=== PATIENT | male | born 1950 | race Two or more races ===

== ENCOUNTER 2024-12-27 12:36 | Inpatient (IN) | payer OTHER ==
[2024-12-27 12:48] VITALS: BMI 27.1
[2024-12-27 13:25] LABS: ABSOLUTE IMMATURE GRANULOCYTES 0.01 x10^3/uL (0.0-0.031); BASOPHILS # 0.02 x10^3/uL (0.01-0.08); EOSINOPHIL % 0.9 % (0.8-7.0); EOSINOPHILS # 0.06 x10^3/uL (0.04-0.54); MCHC 33.2 g/dl (32.3-36.5); MEAN CELL VOLUME 93.7 fl (79.0-92.2); MEAN PLT VOLUME 9.4 fl (9.4-12.4); MONOCYTE # 0.67 x10^3/uL (0.30-0.82); MONOCYTE % 10.3 % (5.3-12.2); RDW 12.2 % (12.2-16.6)
[2024-12-27 13:46] LABS: INR 1.02 (0.83-1.09); PROTHROMBIN TIME (PATIENT) 11.2 SEC (9.7-13.0)
[2024-12-27 13:47] LABS: GLUCOSE,RANDOM 101 mg/dL (74-106)
[2024-12-27 13:48] LABS: TOT PROT 7.1 g/dl (6.4-8.2)
[2024-12-27 13:49] LABS: ACTIVATED PTT 26.9 SECONDS (25.2-36.5)
[2024-12-27 13:49] LABS: CO2 22 mmol/L (21-32)
[2024-12-27 13:50] LABS: ALK PHOS 57 U/L (40-150)
[2024-12-27] MEDS: SODIUM CHLORIDE 1,000 ML IV SCH (13:51)
[2024-12-27 13:53] LABS: CREATININE 0.74 mg/dL (0.55-1.3); LDL CHOLESTEROL (ONLY SJRH) 80 mg/dL (5-100); SGOT/AST 30 U/L (5-34); SGPT/ALT 71 U/L (0-55)
[2024-12-27 14:15] LABS: HCV DIAGNOSTIC IN-HOUSE W/RFLX NON-REACTIVE (NONREACTIVE); HIV INTERPRETATION NEGATIVE (NEGATIVE)
[2024-12-27 14:56] LABS: URINE APPEARANCE CLOUDY; URINE BILIRUBIN NEGATIVE (NEGATIVE); URINE COLOR YELLOW; URINE GLUCOSE (UA) NEGATIVE (NEGATIVE); URINE KETONE NEGATIVE (NEGATIVE)
[2024-12-27 14:57] LABS: URINE LEUK ESTERASE NEGATIVE (NEGATIVE); URINE NITRITE NEGATIVE (NEGATIVE); URINE PROTEIN NEGATIVE (NEGATIVE); URINE UROBILINOGEN 0.2 mg/dL (0.2-1.0)
[2024-12-27] MEDS ORDERED: ATORVASTATIN CA 80 MG TABLET (FP) ONE (16:02)
[2024-12-27] MEDS ORDERED: CLOPIDOGREL BISULFATE 300 MG TABLET ONE (16:02)
[2024-12-27] MEDS ORDERED: ASPIRIN 81 MG CHEWABLE TABLETS ONE (16:03)
[2024-12-27] MEDS: ATORVASTATIN CA 80 MG TABLET (FP) PO ONE (16:07)
[2024-12-27] MEDS: CLOPIDOGREL BISULFATE 300 MG TABLET PO ONE (16:07)
[2024-12-27] MEDS: ASPIRIN 81 MG CHEWABLE TABLETS PO ONE (16:07)
[2024-12-27] MEDS: GABAPENTIN 300 MG CAPSULE PO SCH (21:11)
[2024-12-28 08:41] LABS: ABSOLUTE IMMATURE GRANULOCYTES 0.03 x10^3/uL (0.0-0.031); BASOPHILS # 0.02 x10^3/uL (0.01-0.08); EOSINOPHIL % 1.8 % (0.8-7.0); EOSINOPHILS # 0.11 x10^3/uL (0.04-0.54); MCHC 32.6 g/dl (32.3-36.5); MEAN CELL VOLUME 95.6 fl (79.0-92.2); MEAN PLT VOLUME 9.2 fl (9.4-12.4); MONOCYTE # 0.54 x10^3/uL (0.30-0.82); MONOCYTE % 9.0 % (5.3-12.2); RDW 12.0 % (12.2-16.6)
[2024-12-28 10:01] LABS: GLUCOSE,RANDOM 81.0 mg/dL (74-106)
[2024-12-28 10:02] LABS: TOT PROT 7.1 g/dl (6.4-8.2)
[2024-12-28 10:03] LABS: CO2 23.0 mmol/L (21-32)
[2024-12-28 10:07] LABS: SGOT/AST 34.0 U/L (5-34); SGPT/ALT 77.0 U/L (0-55)
[2024-12-28 10:08] LABS: CREATININE 0.81 mg/dL (0.55-1.3)
[2024-12-28] MEDS: PANTOPRAZOLE 40 MG TABLET PO SCH (10:23)
[2024-12-28] MEDS: ASPIRIN COATED 81 MG TABLET.EC PO SCH (10:23)
[2024-12-28] MEDS: CLOPIDOGREL BISULFATE 75 MG TABLET (FP) PO SCH (10:23)
[2024-12-28] MEDS: FLUTICASONE/UMECLIDIN/VILANTER(100-62.5-25 TRELEGY ELLIPTA) INAHLER IH SCH (11:34)
[2024-12-28 11:44] LABS: ALK PHOS 60.0 U/L (40-150)
[2024-12-28 11:47] LABS: LDL CHOLESTEROL (ONLY SJRH) 85.0 mg/dL (5-100)
[2024-12-28] MEDS: RIVAROXABAN 15 MG TABLET PO SCH (18:09)
[2024-12-28] MEDS: ATORVASTATIN CA 80 MG TABLET (FP) PO SCH (21:54)
[2024-12-29] MEDS: POLYETHYLENE GLYCOL (HEALTHYLAX) 3350 17 GM PACKET PO SCH (21:58)
[2024-12-30] MEDS: APIXABAN 5 MG TABLET PO SCH (09:20)
[2024-12-30 10:21] LABS: GLUCOSE,RANDOM 88.0 mg/dL (74-106)
[2024-12-30 10:22] LABS: TOT PROT 7.4 g/dl (6.4-8.2)
[2024-12-30 10:23] LABS: CO2 24.0 mmol/L (21-32)
[2024-12-30 10:24] LABS: ALK PHOS 63.0 U/L (40-150)
[2024-12-30 10:27] LABS: CREATININE 0.89 mg/dL (0.55-1.3); SGOT/AST 36.0 U/L (5-34); SGPT/ALT 84.0 U/L (0-55)
[2024-12-30 10:47] LABS: HEPATITIS B SURF AG NON-MATERN NON-REACTIVE (NONREACTIVE)
[2024-12-30 11:55] LABS: SYPHILIS W/ RPR CONF REACTIVE (NONREACTIVE)
[2024-12-30 15:08] LABS: RPR REFLEX REACTIVE 1:1 (NONREACTIVE)
[2024-12-31 09:18] LABS: ABSOLUTE IMMATURE GRANULOCYTES 0.03 x10^3/uL (0.0-0.031); BASOPHILS # 0.03 x10^3/uL (0.01-0.08); EOSINOPHIL % 1.5 % (0.8-7.0); EOSINOPHILS # 0.11 x10^3/uL (0.04-0.54); MCHC 33.0 g/dl (32.3-36.5); MEAN CELL VOLUME 94.5 fl (79.0-92.2); MEAN PLT VOLUME 9.3 fl (9.4-12.4); MONOCYTE # 0.83 x10^3/uL (0.30-0.82); MONOCYTE % 11.0 % (5.3-12.2); RDW 12.2 % (12.2-16.6)
[2024-12-31 09:28] LABS: GLUCOSE,RANDOM 86.0 mg/dL (74-106); TOT PROT 7.7 g/dl (6.4-8.2)
[2024-12-31 09:29] LABS: CO2 26.0 mmol/L (21-32)
[2024-12-31 09:31] LABS: ALK PHOS 64.0 U/L (40-150)
[2024-12-31 09:33] LABS: SGPT/ALT 85.0 U/L (0-55)
[2024-12-31 09:34] LABS: CREATININE 0.93 mg/dL (0.55-1.3); SGOT/AST 34.0 U/L (5-34)
[2024-12-31] MEDS: PENICILLIN G BENZATHINE 2,400,000 UNIT/4 ML PFS IM ONE (09:41)
[2024-12-31 10:33] VITALS: BP 150/86; PULSE 72; RESP 16; TEMP 97.8
== END 2024-12-31 13:46 | disposition home or self-care (01) | DRG 66 ==
LOC: JER 12:36 → JERBED 16:44 → J4S 20:16
PROVIDERS: ADMIT Internal Medicine; ATTEND Internal Medicine
DX: I63.89 Other cerebral infarction (principal); R29.700 NIHSS score 0; I25.10 Atherosclerotic heart disease of native coronary artery without angina pectoris; I10 Essential (primary) hypertension; E78.5 Hyperlipidemia, unspecified; H40.9 Unspecified glaucoma; R74.01 Elevation of levels of liver transaminase levels; K59.00 Constipation, unspecified; Z95.5 Presence of coronary angioplasty implant and graft; I25.2 Old myocardial infarction
CPT/HCPCS: 36415; 70450-TC; 70496-TC; 70498-TC; 76705-TC; 80053; 80061; 81003; 82248; 82550; 82607; 82962; 83036; 83735; 84100; 84443; 84484; 85025; 85610; 85730; 86593; 86704; 86708; 86780; 86803; 86850; 86900; 86901; 87340; 87389; 87517; 93005; 93010; 93306-TC; 97116-GP; 97161-GP; 99285-25